=== PATIENT | female | born 1945 ===

== ENCOUNTER 2020-03-20 11:21 | Emergency (ER) | payer SELFPAY ==
[~2020-03-20] VITALS: Ht 152.4 cm; Wt 68.2 kg
[2020-03-20 11:34] VITALS: TEMP 99.2
[2020-03-20 12:59] LABS: BASO % 0.2 % (0.0-2.0); GRAN # 4.4 (1.4-6.5); GRAN % 72.4 % (42.2-75.2); HEMATOCRIT 43.3 % (37.0-47.0); HEMOGLOBIN 14.2 g/dl (12.5-16.0); LYMPH # 1.3 (1.2-3.4); MEAN CELL VOLUME 80 fl (80.0-100.0); MEAN CORPUSCULAR HEMOGLOBIN 26 pg (27.0-31.0); MEAN CORPUSCULAR HGB CONC 33 g/dl (33.0-37.0); MEAN PLATELET VOLUME 12.8 fl (7.4-10.4); MONO # 0.4 (0.1-0.6); MONO % 6.1 % (1.7-9.3); PLATELET COUNT 98 K/mm3 (130-400); RED BLOOD COUNT 5.43 M/mm3 (4.10-5.30); REDCELL DISTRIBUTION WIDTH-CV 13.6 % (11.5-14.5)
[2020-03-20 13:13] LABS: ALBUMIN 3.8 gm/dL (3.5-5.0); BILIRUBIN,TOTAL 0.5 mg/dL (0.0-1.0); CALCIUM 8.1 mg/dL (8.4-10.2); CREATININE, serum 0.76 (0.52-1.25); POTASSIUM 3.6 mmol/L (3.4-5.0)
[2020-03-20 14:46] VITALS: BP 148/78; PULSE 86
== END 2020-03-20 14:45 | disposition home or self-care (01) ==
LOC: COL.ER 11:21 → EDBD 11:22 → COL.ER 11:22
PROVIDERS: Emergency Medicine
DX: U07.1 COVID-19 (principal)
CPT/HCPCS: J8540